=== PATIENT | female | born 2000 | race Caucasian/White ===

== ENCOUNTER 2021-02-13 04:08 | Emergency (ER) | payer OTHER ==
[~2021-02-13] VITALS: Ht 157.5 cm; Wt 49.9 kg
[2021-02-13 04:47] LABS: ABSOLUTE NEUTROPHILS 12.7 thou/uL (1.4-8.2); BASOPHILS 0.4 % (0.0-2.0); EOSINOPHILS 1.1 % (0.0-3.0); HEMATOCRIT 36.7 % (37.0-47.0); HEMOGLOBIN 12.4 gm/dL (12.0-15.0); LYMPHOCYTES 13.5 % (24.0-44.0); MCH 29.2 pg (26.0-34.0); MCHC 33.7 g/dL (28.0-37.0); MCV 86.6 fL (80.0-100.0); MONOCYTES 6.6 % (1.0-8.0); PLATELET COUNT 282 thou/uL (150-400); POLYS 78.4 % (36.0-66.0); RBC 4.24 mil/uL (4.20-5.00); RDW 13.3 % (10.5-14.5); WBC 16.2 thou/uL (4.0-11.0)
[2021-02-13 04:52] LABS: CALCIUM 9.3 mg/dL (8.5-10.1); CREATININE 0.8 mg/dL (0.6-1.0); POTASSIUM 3.4 mmol/L (3.5-5.1)
[2021-02-13 04:59] LABS: ALBUMIN 4.2 g/dL (3.4-5.0); TOTAL BILIRUBIN 0.6 mg/dL (0.2-1.0); TOTAL PROTEIN 7.7 g/dL (6.4-8.2)
[2021-02-13 06:08] LABS: URINE BILIRUBIN NEGATIVE (Negative); URINE BLOOD 1+ (Negative); URINE CLARITY CLEAR; URINE COLOR YELLOW; URINE GLUCOSE-RANDOM* NEGATIVE (Negative); URINE KETONES NEGATIVE (Negative); URINE LEUKOCYTES-REFLEX NEGATIVE (Negative); URINE NITRITE-REFLEX NEGATIVE (Negative); URINE PROTEIN (DIPSTICK) NEGATIVE (Negative); URINE SPECIFIC GRAVITY 1.025 (1.005-1.035); URINE UROBILINOGEN 0.2 E.U./dl (0.2-1.0)
[2021-02-13] MEDS ORDERED: ZOFRAN ODT4 MG PO (06:19)
[2021-02-13] MEDS ORDERED: LEVSIN0.125 MG PO (06:19)
[2021-02-13 06:26] LABS: BACTERIA-REFLEX None Seen /HPF (None Seen); CASTS None Seen /LPF (None Seen); MUCUS >6 Heavy strn/LPF (None Seen); SQUAMOUS 0-3 Few /LPF (0-3); URINE RBC 1-2 Rare /HPF (NONE SEEN); URINE WBC-REFLEX 0-5 Rare /HPF (0-5)
[2021-02-13 06:27] LABS: CRYSTALS None Seen /LPF (None Seen)
[2021-02-13 06:30] VITALS: BP 114/60
== END 2021-02-13 06:30 | disposition home or self-care (01) ==
LOC: ER 04:08
PROVIDERS: Emergency Medicine
DX: R10.13 Epigastric pain (principal); Z88.1 Allergy status to other antibiotic agents